=== PATIENT | male | born 1940 | race Caucasian/White ===

== ENCOUNTER 2018-12-02 22:48 | Emergency (ER) | payer MEDICARE ==
[2018-12-03 01:47] LABS: ABSOLUTE BASOPHILS # (AUTO) 0.1 10^3/uL (0.0-0.2); ABSOLUTE EOSINOPHILS # (AUTO) 0.1 10^3/uL (0.0-0.6); ABSOLUTE LYMPHOCYTES (AUTO) 1.9 10^3/uL (0.5-4.7); ABSOLUTE MONOCYTES (AUTO) 0.7 10^3/uL (0.1-1.4); ABSOLUTE NEUT (AUTO) 7.7 10^3/uL (1.7-8.2); BASOPHILS % (AUTO) 0.7 % (0-2); EOSINOPHILS % (AUTO) 0.7 % (0-6); HEMATOCRIT 42.4 % (37.9-51.0); HEMOGLOBIN 14.3 g/dL (13.5-17.0); LYMPHOCYTES % (AUTO) 18.4 % (13-45); MEAN CORPUSCULAR HEMOGLOBIN 31.6 pg (27.0-33.4); MEAN CORPUSCULAR HGB CONC 33.6 g/dL (32.0-36.0); MEAN CORPUSCULAR VOLUME 94 fl (80-97); MONOCYTES % (AUTO) 6.5 % (3-13); PLATELET COUNT 259 10^3/uL (150-450); RED BLOOD COUNT 4.51 10^6/uL (4.35-5.55); RED CELL DISTRIBUTION WIDTH 13.7 % (11.5-14.0); SEGMENTED NEUTROPHILS % (AUTO) 73.7 % (42-78); TOTAL CELLS COUNTED % (AUTO) 100 %; WHITE BLOOD COUNT 10.4 10^3/uL (4.0-10.5)
[2018-12-03 02:07] LABS: ALANINE AMINOTRANSFERASE 21 U/L (21-72); ALKALINE PHOSPHATASE 120 U/L (38-126); ANION GAP 9 (5-19); ASPARTATE AMINO TRANSFERASE 20 U/L (17-59); BILIRUBIN,DIRECT 0.2 mg/dL (0.0-0.4); BILIRUBIN,TOTAL 0.3 mg/dL (0.2-1.3); BLOOD UREA NITROGEN 26 mg/dL (7-20); CALCIUM 9.4 mg/dL (8.4-10.2); CARBON DIOXIDE 29 mmol/L (22-30); CHLORIDE 100 mmol/L (98-107); CREATINE KINASE 134 U/L (55-170); GLUCOSE 197 mg/dL (75-110); POTASSIUM 5.3 mmol/L (3.6-5.0); SODIUM 137.7 mmol/L (137-145); TOTAL PROTEIN 6.8 g/dL (6.3-8.2)
[2018-12-03 02:17] LABS: CREATINE KINASE MB 2.14 ng/mL (<4.55)
--- NOTE | 2018-12-03 02:19 | RADIOLOGY REPORT (SQ) ---
CLINICAL HISTORY: chest pain COMPARISON: None. 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 Lungs are clear without consolidation, atelectasis, mass or edema. There is no pleural effusion. There is no pneumothorax. There are no acute osseous findings. IMPRESSION: No pneumonia.
--- NOTE | 2018-12-03 02:21 | ER Document Report ---
ED Cardiac - General Chief Complaint: Chest Tightness Stated Complaint: CHEST PAIN Notes: Patient is a 77-year-old male who presents to the emerge department with a chief complaint of "feeling funny." He has an extensive cardiac history and has a history of bypass surgery in 2013. He also has a history of a myocardial infarction in 1997. He states he feels the same as he did before, therefore he came to the emergency department. Denies any true chest pain. He denies doing anything strenuous. He denies any nausea, vomiting, or diarrhea. Denies shortness of breath or difficulty breathing. He stopped taking his Lasix 1 week ago. His past medical history includes hypertension, hyperlipidemia, and diabetes. TRAVEL OUTSIDE OF THE [place] IN LAST 30 DAYS: No - Related Data Allergies/Adverse Reactions: No Known Allergies Allergy (Unverified 01/15/15 17:07) Past Medical History - Social History Smoking Status: Former Smoker Chew tobacco use (# tins/day): No Drug Abuse: None Family History: Reviewed & Not Pertinent Patient has suicidal ideation: No Patient has homicidal ideation: No - Past Medical History Cardiac Medical History: Reports: Hx Coronary Artery Disease, Hx Heart Attack - 2013, Hx Hypertension Pulmonary Medical History: Reports: Hx Asthma, Hx COPD, Hx Pneumonia Denies: Hx Bronchitis Neurological Medical History: Denies: Hx Cerebrovascular Accident, Hx Seizures Endocrine Medical History: Reports: Hx Diabetes Mellitus Type 2 Renal/ Medical History: Denies: Hx Peritoneal Dialysis Musculoskeletal Medical History: Reports Hx Arthritis Past Surgical History: Reports: Hx Cardiac Surgery - dbl bypass, Hx Orthopedic Surgery - left finger, left knee - Immunizations Hx Diphtheria, Pertussis, Tetanus Vaccination: Yes Hx Pneumococcal Vaccination: 08/29/13 Review of Systems - Review of Systems Notes: REVIEW OF SYSTEMS: CONSTITUTIONAL : Denies recent illness. Denies recent unintentional weight loss. Denies fever, chills, or sweats. EENT: Denies eye, ear, throat, or mouth pain, discharge, or symptoms. Denies nasal or sinus congestion. CARDIOVASCULAR: See HPI RESPIRATORY: Denies shortness of breath, cough, congestion, difficulty breathing, or wheezing. GASTROINTESTINAL: Denies nausea, vomiting, and diarrhea. Denies abdominal pain. Denies constipation. GENITOURINARY: Denies difficulty urinating, burning, blood in urine, urgency or frequency. MUSCULOSKELETAL: Denies neck and back pain. Denies joint pain or swelling. SKIN: Denies rash, itchiness, or lesions HEMATOLOGIC : Denies easy bruising or bleeding. LYMPHATIC: Denies swollen, painful, enlarged glands. NEUROLOGICAL: Denies no numbness or tingling denies weakness. Denies headache. Denies altered mental status. Denies alteration in speech. PSYCHIATRIC: Denies stress, anxiety, alteration in sleep patterns, or depression. All other systems reviewed and negative. Physical Exam - Vital signs Vitals: Temp Pulse Resp BP Pulse Ox 97.5 F 65 18 149/80 H 96 12/02/18 23:19 12/02/18 23:19 12/02/18 23:19 12/02/18 23:19 12/02/18 23:19 - Notes Notes: PHYSICAL EXAMINATION: GENERAL: Obese, well-nourished, no acute distress. HEAD: Normocephalic, atraumatic. EYES: PERRL, conjunctiva normal, all extraocular movements intact, sclera nonic teric ENT: Moist mucous membranes. NECK: Supple, no noticeable swelling, redness, rash. Normal range of motion. LUNGS: Equal breath sounds bilaterally and clear to auscultation. No wheezes rales or rhonchi. CARDIOVASCULAR: S1-S2, regular rate, regular rhythm. Radial pulses 2+, normal. ABDOMEN: Normoactive bowel sounds. Soft, nontender, no guarding, no rebound tenderness, and no masses palpated. Obese abdomen. EXTREMITIES: Normal strength and range of motion, no pitting or edema. No cyanosis. NEUROLOGICAL: Moves all extremities upon command. Strength 5/5 in all extremities. PSYCH: Normal mood, normal affect. SKIN: Warm, dry. No rash, lesions, ulcerations noted. Normal skin turgor. Course - Re-evaluation Re-evalutation: 12/03/18 04:40 Patient is labs are unremarkable other than his potassium being 5.3. I suspect his potassium is 5.3 because he stopped taking his Lasix. He stated that he stopped taking his Lasix because he peed a lot. I educated the patient in regards to why it is important that he stay on his Lasix. He verbalized understanding. His chest x-ray is clear. His EKG shows sinus rhythm. The read on the zoning engineer reads an anterior infarct, but he has history of a CABG and acute myocardial infarction, which is consistent with the infarcted area. There is no previous EKG for comparison. 12/03/18 05:40 Patient's repeat troponin is negative. I suspect that the reason he is having his symptoms is because he has stopped taking his Lasix for the past week. I have given him strict instructions on getting back on his Lasix. He verbalized understanding. He states that he will take his Lasix when he gets home. Verbal discharge instructions were given to the patient. They verbalized understanding. They are stable for discharge. Documentation was completed using voice recognition software, therefore there may be some unintended grammatical or punctual errors. - Vital Signs Vital signs: Temp Pulse Resp BP Pulse Ox 98.2 F 65 18 107/57 L 96 12/03/18 05:01 12/02/18 23:19 12/03/18 05:01 12/03/18 05:01 12/03/18 05:01 - Laboratory Result Diagrams: 12/03/18 01:25 12/03/18 01:25 Laboratory results interpreted by me: 12/03/18 01:25 Potassium 5.3 H BUN 26 H Glucose 197 H - EKG Interpretation by Me Additional EKG results interpreted by me: 12/03/18 Sinus rhythm. Heart rate 67. CA interval 216. QRS 102; QT 408; QTC 431. Discharge - Discharge Clinical Impression: Chest pain Qualifiers: Chest pain type: unspecified Qualified Code(s): R07.9 - Chest pain, unspecified Condition: Stable Disposition: HOME, SELF-CARE Additional Instructions: You were seen today in the emergency department for chest pain. Your chest x-ray is normal, your EKG is normal, and your labs show that your potassium has increased slightly. Please start taking your Lasix again, as this may be the cause of your chest pain symptoms. You are not having a heart attack. Please follow-up with Dr. Hubbard in the morning in regards to this emergency department visit. Referrals: SHIRLEY PFEIFFER MD [NO LOCAL MD] - Follow up as needed DEE DEE HUBBARD MD [ACTIVE STAFF] - Follow up tomorrow
[2018-12-03 02:25] LABS: TROPONIN I < 0.012 ng/mL
[2018-12-03 05:47] VITALS: BP 107/57
--- NOTE | 2018-12-03 12:41 | EKG REPORT ---
SEVERITY:- ABNORMAL ECG - SINUS RHYTHM ANTERIOR INFARCT, AGE INDETERMINATE BORDERLINE T ABNORMALITIES, INFERIOR LEADS : Confirmed by: Monique Corona MD 03-Dec-2018 12:40:48
== END 2018-12-03 05:20 | disposition home or self-care (01) ==
LOC: ER 22:48
DX: R07.89 Other chest pain (principal); I10 Essential (primary) hypertension; T50.1X6A Underdosing of loop [high-ceiling] diuretics, initial encounter; Z91.128 Patient's intentional underdosing of medication regimen for other reason; Z91.14 Patient's other noncompliance with medication regimen; E11.9 Type 2 diabetes mellitus without complications; I25.10 Atherosclerotic heart disease of native coronary artery without angina pectoris; E66.9 Obesity, unspecified; J44.9 Chronic obstructive pulmonary disease, unspecified; I25.2 Old myocardial infarction; Z95.1 Presence of aortocoronary bypass graft; Z87.891 Personal history of nicotine dependence; Z87.01 Personal history of pneumonia (recurrent)
CPT/HCPCS: 36415; 71045; 80053; 82550; 82553; 84484; 85025; 93005; 93010; 99285

== ENCOUNTER 2019-07-07 11:24 | Inpatient (IN) | payer MEDICARE ==
[2019-07-07] MEDS ORDERED: IPRATROPIUM/ALBUTEROL 0.5-2.5 MG/3 ML AMPUL NEB ONE (12:32)
[2019-07-07] MEDS ORDERED: METHYLPREDNISOLONE INJ 40 MG/1 ML SDV IV ONE (12:32)
--- NOTE | 2019-07-07 12:33 | ER Document Report ---
ED General - General Chief Complaint: Shortness Of Breath Stated Complaint: SHORTNESS OF BREATH Time Seen by Provider: 07/07/19 12:00 Notes: Patient is a 78-year-old male with COPD that presents to the emergency department for chief complaint of shortness of breath and cough. Patient states that since Wednesday has been having more shortness of breath, difficulty breathing, he had his primary physician know this, they called in a prescription for azithromycin which she has been taking without any improvement, they called to check on him, and he was not doing better so he went to the office today, had chest x-ray that was concerning for pneumonia so he was sent to the emergency department, he reports having a low-grade temperature of a T-max of 100.7 F. He denies having any chest pain associated with this, denies any nausea, vomiting or abdominal pain. He does report he has obstructive sleep apnea wears CPAP at night, and has been compliant with this as well. He also uses inhalers, but they have not been improving his symptoms. Past Medical History: COPD, CAD, obstructive sleep apnea, diabetes mellitus Past Surgical History: CABG, stents Social History: Former smoker, denies alcohol or illicit drug use. Family History: Reviewed and noncontributory for presenting illness Allergies: Reviewed, see documented allergy list. REVIEW OF SYSTEMS: Other than noted above, the 12 point review of systems was reviewed with the pat ient and were negative, all pertinent findings are included in the HPI. PHYSICAL EXAMINATION: Vital signs reviewed, nursing noted reviewed. GENERAL: Elderly, obese male, mild increased work of breathing. HEAD: Atraumatic, normocephalic. EYES: Eyes appear normal, extraocular movements intact, sclera anicteric, conjunctiva are normal. ENT: nares patent, oropharynx clear without exudates. Moist mucous membranes. NECK: Normal range of motion, supple without lymphadenopathy LUNGS: Increased work of breathing, diffuse wheezing noted throughout all lung [place], lung sounds overall diminished as well. HEART: Regular rate and rhythm without murmurs ABDOMEN: Soft, obese, nontender, normoactive bowel sounds. No rebound, guarding, or rigidity. No masses appreciated. EXTREMITIES: Nontender, good range of motion, mild bilateral lower extremity edema NEUROLOGICAL: No focal neurological deficits. Moves all extremities spontaneously Motor and sensory grossly intact on exam. PSYCH: Normal mood, normal affect. SKIN: Warm, Dry, normal turgor, no rashes or lesions noted on exposed skin TRAVEL OUTSIDE OF THE [place] IN LAST 30 DAYS: No - Related Data Allergies/Adverse Reactions: No Known Allergies Allergy (Verified 07/07/19 14:59) Past Medical History - Social History Smoking Status: Former Smoker Family History: Reviewed & Not Pertinent - Past Medical History Cardiac Medical History: Reports: Hx Coronary Artery Disease, Hx Heart Attack - 2014, Hx Hypertension Pulmonary Medical History: Reports: Hx Asthma, Hx COPD, Hx Pneumonia Denies: Hx Bronchitis Neurological Medical History: Denies: Hx Cerebrovascular Accident, Hx Seizures Endocrine Medical History: Reports: Hx Diabetes Mellitus Type 2 Renal/ Medical History: Denies: Hx Peritoneal Dialysis Musculoskeletal Medical History: Reports Hx Arthritis Past Surgical History: Reports: Hx Cardiac Surgery - dbl bypass, Hx Orthopedic Surgery - left finger, left knee - Immunizations Hx Diphtheria, Pertussis, Tetanus Vaccination: Yes Hx Pneumococcal Vaccination: 08/29/13 Physical Exam - Vital signs Vitals: Temp Pulse Resp BP Pulse Ox 98.1 F 77 26 H 169/77 H 88 L 07/07/19 11:26 07/07/19 11:26 07/07/19 11:26 07/07/19 11:26 07/07/19 11:26 Course - Re-evaluation Re-evalutation: Patient seen and examined vital signs reviewed. Laboratory data and imaging were ordered as appropriate for the patient's presenting symptoms and complaint, with consideration of any critical or life threatening conditions that may be associated with their obtained history and exam as noted above. Patient was treated with DuoNeb breathing treatments, IV Solu-Medrol, and s tarted on Rocephin and azithromycin Results were reviewed when available and demonstrated chest x-ray concerning for infiltrative pneumonia, he did have an elevated BNP, but no pulmonary edema on chest x-ray, symptoms are most consistent with pneumonia, with acute exacerbation of COPD. The patient was re-evaluated and was improved after breathing treatments Results were discussed with the patient at this point after careful consideration I feel that that patient should be admitted to the hospital. This was discussed with the patient that it is in the best interest for their care to be admitted for further evaluation and management. Patient agreed with this plan of care. A call was placed to the admitting provider Issac Henry CNP who graciously accepted the patient onto their service. *Note is created using voice recognition software and may contain spelling, syntax or grammatical errors. Laboratory 07/07/19 07/07/19 07/07/19 12:31 12:31 12:31 WBC 7.4 RBC 3.89 L Hgb 12.0 L Hct 35.6 L MCV 92 MCH 30.8 MCHC 33.7 RDW 14.3 H Plt Count 268 Seg Neutrophils % 68.7 Lymphocytes % 19.7 Monocytes % 8.2 Eosinophils % 2.8 Basophils % 0.6 Absolute Neutrophils 5.1 Absolute Lymphocytes 1.5 Absolute Monocytes 0.6 Absolute Eosinophils 0.2 Absolute Basophils 0.0 VBG pH 7.41 VBG pCO2 48.6 VBG HCO3 30.3 VBG Base Excess 4.8 Sodium 137.7 Potassium 4.8 Chloride 100 Carbon Dioxide 31 H Anion Gap 7 BUN 16 Creatinine 0.98 Est GFR ( Amer) > 60 Est GFR (Non-Af Amer) > 60 Glucose 168 H POC Glucose Calcium 9.1 Total Bilirubin 0.7 Direct Bilirubin 0.3 Neonat Total Bilirubin Not Reportable Neonat Direct Bilirubin Not Reportable Neonat Indirect Bili Not Reportable AST 26 ALT 30 Alkaline Phosphatase 94 Troponin I NT-Pro-B Natriuret Pep Total Protein 6.3 Albumin 3.3 L 07/07/19 07/07/19 12:31 13:17 WBC RBC Hgb Hct MCV MCH MCHC RDW Plt Count Seg Neutrophils % Lymphocytes % Monocytes % Eosinophils % Basophils % Absolute Neutrophils Absolute Lymphocytes Absolute Monocytes Absolute Eosinophils Absolute Basophils VBG pH VBG pCO2 VBG HCO3 VBG Base Excess Sodium Potassium Chloride Carbon Dioxide Anion Gap BUN Creatinine Est GFR ( Amer) Est GFR (Non-Af Amer) Glucose POC Glucose 162 H Calcium Total Bilirubin Direct Bilirubin Neonat Total Bilirubin Neonat Direct Bilirubin Neonat Indirect Bili AST ALT Alkaline Phosphatase Troponin I < 0.012 NT-Pro-B Natriuret Pep 2840 H Total Protein Albumin Chest X-Ray 07/07/19 11:57 IMPRESSION: Increased opacity over the right mid lung, possible airspace disease. No significant pleural effusion. - Vital Signs Vital signs: Temp Pulse Resp BP Pulse Ox 98.1 F 77 20 145/66 H 94 07/07/19 11:26 07/07/19 11:26 07/07/19 14:01 07/07/19 14:01 07/07/19 14:01 - Laboratory Result Diagrams: 07/07/19 12:31 07/07/19 12:31 Laboratory results interpreted by me: 07/07/19 07/07/19 07/07/19 12:31 12:31 12:31 RBC 3.89 L Hgb 12.0 L Hct 35.6 L RDW 14.3 H Carbon Dioxide 31 H Glucose 168 H POC Glucose NT-Pro-B Natriuret Pep 2840 H Albumin 3.3 L 07/07/19 13:17 RBC Hgb Hct RDW Carbon Dioxide Glucose POC Glucose 162 H NT-Pro-B Natriuret Pep Albumin - EKG Interpretation by Me Additional EKG results interpreted by me: EKG demonstrates sinus rhythm with first-degree AV block, with a ventricular rate of 65 bpm, normal axis, normal intervals, no ST elevation, unchanged from prior EKG from 12/02/2018. Discharge - Discharge Clinical Impression: Acute exacerbation of chronic obstructive pulmonary disease (COPD), Hypoxia Community acquired pneumonia Qualifiers: Laterality: unspecified laterality Qualified Code(s): J18.9 - Pneumonia, unspecified organism Condition: Stable Disposition: ADMITTED INPATIENT Admitting Provider: Trev (Hospitalist) - Issac Henry MICRO COMPUTER DATA PROCESSOR Unit Admitted: Telemetry
[2019-07-07 12:53] LABS: VENOUS BLOOD BASE EXCESS 4.8 mmol/L; VENOUS BLOOD HCO3 30.3 mmol/L (20-32); VENOUS BLOOD PCO2 48.6 mmHg (35-63); VENOUS BLOOD PH 7.41 (7.30-7.42)
[2019-07-07 12:57] LABS: ABSOLUTE EOSINOPHILS # (AUTO) 0.2 10^3/uL (0.0-0.6); ABSOLUTE LYMPHOCYTES (AUTO) 1.5 10^3/uL (0.5-4.7); ABSOLUTE MONOCYTES (AUTO) 0.6 10^3/uL (0.1-1.4); ABSOLUTE NEUT (AUTO) 5.1 10^3/uL (1.7-8.2); BASOPHILS % (AUTO) 0.6 % (0-2); EOSINOPHILS % (AUTO) 2.8 % (0-6); HEMATOCRIT 35.6 % (37.9-51.0); LYMPHOCYTES % (AUTO) 19.7 % (13-45); MEAN CORPUSCULAR HEMOGLOBIN 30.8 pg (27.0-33.4); MEAN CORPUSCULAR HGB CONC 33.7 g/dL (32.0-36.0); MEAN CORPUSCULAR VOLUME 92 fl (80-97); MONOCYTES % (AUTO) 8.2 % (3-13); PLATELET COUNT 268 10^3/uL (150-450); RED BLOOD COUNT 3.89 10^6/uL (4.35-5.55); RED CELL DISTRIBUTION WIDTH 14.3 % (11.5-14.0); SEGMENTED NEUTROPHILS % (AUTO) 68.7 % (42-78); TOTAL CELLS COUNTED % (AUTO) 100 %; WHITE BLOOD COUNT 7.4 10^3/uL (4.0-10.5)
[2019-07-07 13:16] LABS: ANION GAP 7 (5-19)
--- NOTE | 2019-07-07 13:19 | EKG REPORT ---
SEVERITY:- ABNORMAL ECG - SINUS RHYTHM FIRST DEGREE AV BLOCK ANTERIOR INFARCT, OLD POSSIBLE OLD INFERIOR MT. : Confirmed by: Mckinley Santos MD 07-Jul-2019 13:18:52
[2019-07-07 13:28] LABS: NT PRO BNP 2840 pg/mL (<450)
[2019-07-07 13:29] LABS: TROPONIN I < 0.012 ng/mL
[2019-07-07 13:30] LABS: ALBUMIN 3.3 g/dL (3.5-5.0); ALKALINE PHOSPHATASE 94 U/L (38-126); ASPARTATE AMINO TRANSFERASE 26 U/L (17-59); BILIRUBIN,DIRECT 0.3 mg/dL (0.0-0.4); BILIRUBIN,TOTAL 0.7 mg/dL (0.2-1.3); BLOOD UREA NITROGEN 16 mg/dL (7-20); CALCIUM 9.1 mg/dL (8.4-10.2); CARBON DIOXIDE 31 mmol/L (22-30); CHLORIDE 100 mmol/L (98-107); GLUCOSE 168 mg/dL (75-110); POTASSIUM 4.8 mmol/L (3.6-5.0); TOTAL PROTEIN 6.3 g/dL (6.3-8.2)
[2019-07-07] MEDS ORDERED: CEFTRIAXONE 1 GM/D5W RTU 1 GM/50 ML RTUPB IV ONE (14:10)
--- NOTE | 2019-07-07 14:10 | RADIOLOGY REPORT (SQ) ---
EXAM DESCRIPTION: CHEST SINGLE VIEW COMPLETED DATE/TIME: 07/07/2019 1:59 pm REASON FOR STUDY: SOB COMPARISON: 12/03/2018 TECHNIQUE: Single frontal radiographic view of the chest acquired. NUMBER OF VIEWS: One view. LIMITATIONS: None. FINDINGS: LUNGS AND PLEURA: No pneumothorax. Increased opacity over the right mid lung, possible ai rspace disease. No significant pleural effusion. Similar chronic interstitial changes. MEDIASTINUM AND HILAR STRUCTURES: Stable. HEART AND VASCULAR STRUCTURES: Stable. BONES: No acute findings. HARDWARE: CABG. OTHER: No other significant finding. IMPRESSION: Increased opacity over the right mid lung, possible airspace disease. No significant pl eural effusion. TECHNICAL DOCUMENTATION: JOB ID: [id number] 2010 [employer]- All Rights Reserved Reading location - IP/workstation name: [email or web address]
[2019-07-07] MEDS ORDERED: AZITHROMYCIN INJ 500 MG VIAL IV ONE (14:11)
[2019-07-07] MEDS ORDERED: CEFTRIAXONE SODIUM 1,000 MG in DEXTROSE 5%-WATER 50 ML IV ONE (15:00)
[2019-07-07] MEDS ORDERED: ONDANSETRON HCL INJ/PF 4 MG/2 ML SDV IV PRN (15:23)
[2019-07-07] MEDS ORDERED: OXYCODONE-ACETAMINOPHEN 5-325 MG TABLET PO PRN (15:23)
[2019-07-07] MEDS ORDERED: TEMAZEPAM 15 MG CAPSULE PO PRN (15:23)
[2019-07-07] MEDS ORDERED: ALBUTEROL SULFATE 0.083% NEB 2.5 MG/3 ML AMPUL NEB PRN ×2 (15:33→17:00)
[2019-07-07] MEDS ORDERED: DEXTROSE 50%-WATER 25 GM/50 ML DISP.SYRIN IV PRN ×2 (15:34)
[2019-07-07] MEDS ORDERED: DEXTROSE 40% GEL 15 GM TUBE PO PRN ×2 (15:34)
[2019-07-07] MEDS ORDERED: GLUCAGON,HUMAN RECOMB 1 MG INJ IM PRN (15:34)
--- NOTE | 2019-07-07 15:37 | Progress Note Acknowledgement ---
Progress Note Acknowledgement Progess Note Acknowledgement: I, the undersigned member of the medical staff with appropriate privileges and with supervisory authority over [Issac Henry], a dependent practice allied health professional, acknowledge that I have reviewed the progress notes entered on this patient, and in my professional judgment believe that the assessment made and/or any care evidenced was appropriate
[2019-07-07] MEDS ORDERED: IPRATROPIUM/ALBUTEROL 0.5-2.5 MG/3 ML AMPUL NEB SCH (15:45)
[2019-07-07] MEDS: AZITHROMYCIN 250 MG TABLET PO SCH (15:49)
--- NOTE | 2019-07-07 15:56 | PDOC H&P ---
History of Present Illness Admission Date/PCP: July 07, 2019 SHIRLEY PFEIFFER MD Patient complains of: Shortness of breath History of Present Illness: COLLEEN BETTS JR is a 78 year old male with a several day history of increased shortness of breath. Patient had called his primary care practitioner in week and had antibiotics called in unfortunately they have not shown any improvement. Patient reported ER with increased shortness of breath and found to have an acute exacerbation of chronic CHF as well as as acute exacerbation of chronic COPD and a lobular right middle lobe pneumonia. Patient also has blunting of the bilateral lower lobes suggestive of pneumonia as well. Patient states no other treatment prior to arrival all active is been aggravating factor. Patient says he is unable to perform most of his usual activities at this time secondary shortness of breath. Does have a cough that is nonproductive at this time Past Medical History Cardiac Medical History: Reports: Coronary Artery Disease, Myocardial Infarction - 2013, Hypertension Pulmonary Medical History: Reports: Asthma, Chronic Obstructive Pulmonary Disease (COPD), Pneumonia Denies: Bronchitis Neurological Medical History: Denies: Seizures Endocrine Medical History: Reports: Diabetes Mellitus Type 2 Musculoskeltal Medical History: Reports: Arthritis Hematology: Denies: Anemia Past Surgical History Past Surgical History: Reports: Orthopedic Surgery - left finger, left knee Social History Information Source: Patient Lives with: Family Smoking Status: Former Smoker Frequency of Alcohol Use: None Hx Recreational Drug Use: No Drugs: None Hx Prescription Drug Abuse: No - Advance Directive Resuscitation Status: Full Code Family History Family History: CAD, Hypertension, Other - Leukemia Parental Family History Reviewed: Yes Children Family History Reviewed: Yes Sibling(s) Family History Reviewed.: Yes Medication/Allergy Home Medications: Albuterol Sulfate [Proair HFA Inhalation Aerosol 8.5 gm MDI] 2 puff IH Q4HP PRN 07/07/19 Aspirin [Ecotrin 81 mg EC Tablet] 81 mg PO DAILY 07/07/19 Atorvastatin Calcium [Lipitor 80 mg Tablet] 80 mg PO QHS 07/07/19 Azithromycin [Zithromax 250 mg Tablet] 250 mg PO DAILY 07/07/19 Dutasteride [Avodart Lf 0.5 mg Capsule] 0.5 mg PO DAILY 07/07/19 Fluticasone/Umeclidin/Vilanter [Trelegy 100-62.5-25 Mcg Ellipta 14 Dose/Dpi] 1 puff IH DAILY 07/07/19 Insulin Glargine,Hum.rec.anlog [Lantus Insulin 100 Unit/1 ml 10 ml] 20 unit SQ QHS 07/07/19 Insulin Regular, Human [Novolin R] 10 units SQ Q12 07/07/19 Metoprolol Tartrate [Lopressor 25 mg Tablet] 12.5 mg PO Q12 07/07/19 Tamsulosin HCl [Flomax 0.4 mg Cap.sr] 0.4 mg PO DAILY 07/07/19 Allergies/Adverse Reactions: No Known Allergies Allergy (Verified 07/07/19 14:59) Review of Systems Constitutional: ABSENT: chills, fever(s), headache(s), weight gain, weight loss Eyes: ABSENT: visual disturbances Ears: ABSENT: hearing changes Cardiovascular: ABSENT: chest pain, dyspnea on exertion, edema, orthropnea, palpitations Respiratory: PRESENT: cough, dyspnea. ABSENT: hemoptysis Gastrointestinal: ABSENT: abdominal pain, constipation, diarrhea, hematemesis, hematochezia, nausea, vomiting Genitourinary: ABSENT: dysuria, hematuria Musculoskeletal: ABSENT: joint swelling Integumentary: ABSENT: rash, wounds Neurological: ABSENT: abnormal gait, abnormal speech, confusion, dizziness, focal weakness, syncope Psychiatric: ABSENT: anxiety, depression, homidical ideation, suicidal ideation Endocrine: ABSENT: cold intolerance, heat intolerance, polydipsia, polyuria Hematologic/Lymphatic: ABSENT: easy bleeding, easy bruising Physical Exam Vital Signs: Temp Pulse Resp BP Pulse Ox 98.1 F 77 20 145/66 H 94 07/07/19 11:26 07/07/19 11:26 07/07/19 14:01 07/07/19 14:01 07/07/19 14:01 Intake & Output 07/06/19 07/07/19 07/08/19 06:59 06:59 06:59 Weight 128.5 kg General appearance: PRESENT: no acute distress, well-developed, well-nourished Head exam: PRESENT: atraumatic, normocephalic Eye exam: PRESENT: conjunctiva pink, EOMI, PERRLA. ABSENT: scleral icterus Ear exam: PRESENT: normal external ear exam Mouth exam: PRESENT: moist, tongue midline Neck exam: ABSENT: carotid bruit, JVD, lymphadenopathy, thyromegaly Respiratory exam: PRESENT: decreased breath sounds, rales, symmetrical, unlabored, wheezes Cardiovascular exam: PRESENT: RRR. ABSENT: diastolic murmur, rubs, systolic murmur Pulses: PRESENT: normal dorsalis pedis pul Vascular exam: PRESENT: normal capillary refill GI/Abdominal exam: PRESENT: normal bowel sounds, soft. ABSENT: distended, guarding, mass, organolmegaly, rebound, tenderness Rectal exam: PRESENT: deferred Extremities exam: PRESENT: full ROM. ABSENT: calf tenderness, clubbing, pedal edema Neurological exam: PRESENT: alert, awake, oriented to person, oriented to place, oriented to time, oriented to situation, CN II-XII grossly intact. ABSENT: motor sensory deficit Psychiatric exam: PRESENT: appropriate affect, normal mood. ABSENT: homicidal ideation, suicidal ideation Skin exam: PRESENT: dry, intact, warm. ABSENT: cyanosis, rash Results Laboratory Results: 07/07/19 12:31 07/07/19 12:31 07/07/19 07/07/19 07/07/19 12:31 12:31 12:31 WBC 7.4 RBC 3.89 L Hgb 12.0 L Hct 35.6 L MCV 92 MCH 30.8 MCHC 33.7 RDW 14.3 H Plt Count 268 Seg Neutrophils % 68.7 Lymphocytes % 19.7 Monocytes % 8.2 Eosinophils % 2.8 Basophils % 0.6 Absolute Neutrophils 5.1 Absolute Lymphocytes 1.5 Absolute Monocytes 0.6 Absolute Eosinophils 0.2 Absolute Basophils 0.0 VBG pH 7.41 VBG pCO2 48.6 VBG HCO3 30.3 VBG Base Excess 4.8 Sodium 137.7 Potassium 4.8 Chloride 100 Carbon Dioxide 31 H Anion Gap 7 BUN 16 Creatinine 0.98 Est GFR ( Amer) > 60 Est GFR (Non-Af Amer) > 60 Glucose 168 H Calcium 9.1 Total Bilirubin 0.7 AST 26 Alkaline Phosphatase 94 Total Protein 6.3 Albumin 3.3 L 07/07/19 12:31 Troponin I < 0.012 NT-Pro-B Natriuret Pep 2840 H Impressions: Chest X-Ray 07/07/19 11:57 IMPRESSION: Increased opacity over the right mid lung, possible airspace disease. No significant pleural effusion. Assessment and Plan - Diagnosis (1) Congestive heart failure Qualifiers: Heart failure type: unspecified Heart failure chronicity: unspecified Qualified Code(s): I50.9 - Heart failure, unspecified Is this a current diagnosis for this admission?: Yes Plan: July 07, 2019-I discussed suspect this is acute on chronic although I have no previous echocardiogram to compare to. I will obtain an echocardiogram. Place patient on Lasix 40 g IV 3 times daily until we have bumped his creatinine. Await echocardiogram and may change Medicare based on if this systolic or james stolic in nature. (2) Acute exacerbation of chronic obstructive pulmonary disease (COPD) Is this a current diagnosis for this admission?: Yes Plan: July 07, 2019-bronchodilators, Solu-Medrol 40mg 3 times daily, and patient on Rocephin and azithromycin for known pneumonia. We will continue to follow make change plan of care as appropriate. Place patient on BiPAP as needed at night and for shortness of breath. (3) Community acquired pneumonia Qualifiers: Laterality: unspecified laterality Qualified Code(s): J18.9 - Pneumonia, unspecified organism Is this a current diagnosis for this admission?: Yes Plan: July 07, 2019-lobulated right middle lobe pneumonia, bilateral basilar pneumonia as well. Place patient Rocephin 1 g IV daily and azithromycin 500 mg p.o. daily. Patient be treated for acute exacerbation chronic COPD as well. Will await cultures make change plan of care based on findings. (4) Diabetes mellitus type 2 in obese Is this a current diagnosis for this admission?: Yes Plan: July 07, 2018-cardiac diet with sliding scale insulin and Lantus 15 units at bedtime adjust per patient needs. (5) Hypertension Is this a current diagnosis for this admission?: Yes Plan: July 07, 2019-continue all home meds. (6) Dyslipidemia Is this a current diagnosis for this admission?: Yes Plan: Continue anti-dyslipidemic's (7) BPH (benign prostatic hyperplasia) Is this a current diagnosis for this admission?: Yes Plan: July 07, 2019-continue Flomax - Time Time Spent with patient: 35 or more minutes - Inpatient Certification Based on my medical assessment, after consideration of the patient's comorbidities, presenting symptoms, or acuity I expect that the services needed warrant INPATIENT care.: Yes I certify that my determination is in accordance with my understanding of Medicare's requirements for reasonable and necessary INPATIENT services [42 CFR 412.3e].: Yes Medical Necessity: Other - IV antibiotics
--- NOTE | 2019-07-07 15:58 | ADVANCED CARE ---
- Diagnosis (1) Congestive heart failure Diagnosis Current: Yes (2) Acute exacerbation of chronic obstructive pulmonary disease (COPD) Diagnosis Current: Yes (3) Community acquired pneumonia Diagnosis Current: Yes (4) Diabetes mellitus type 2 in obese Diagnosis Current: Yes (5) Hypertension Diagnosis Current: Yes (6) Dyslipidemia Diagnosis Current: Yes (7) BPH (benign prostatic hyperplasia) Diagnosis Current: Yes Attendance: Myself and patient Resuscitation Status: Full Code Discussion: Discussed plan of care with patient. Place patient medical surgical floor treat his congestive heart failure with Lasix get an echocardiogram, COPD exacerbation with bronchodilators, steroids and antibiotics, and pneumonia with antibiotics. We will continue home medications. Patient in agreement with plan of care. Care Planning Goals: 1-Rocephin and azithromycin for pneumonia 2-steroids, bronchodilators, and antibiotics for COPD exacerbation 3-congestive heart failure-Lasix 40 g IV 3 times daily and echocardiogram make adjustment based on future findings. Time Spent: 20 minutes
[2019-07-07] MEDS ORDERED: METHYLPREDNISOLONE INJ 40 MG/1 ML SDV IV SCH (18:00)
[2019-07-07] MEDS: INSULIN REG, HUMAN 100 UNIT/ML 3 ML VIAL (PYX) SUBCUT SCH ×2 (18:18→21:28)
[2019-07-07] MEDS: FUROSEMIDE INJ/PF 40 MG/4 ML SDV IV SCH (18:21)
[2019-07-07] MEDS: IPRATROPIUM/ALBUTEROL 0.5-2.5 MG/3 ML AMPUL NEB SCH (20:20)
[2019-07-07 21:09] LABS: APPEARANCE,URINE CLEAR; BILIRUBIN,URINE NEGATIVE (NEGATIVE); COLOR,URINE YELLOW; GLUCOSE, URINE 50 mg/dL (NEGATIVE); KETONES,URINE NEGATIVE (NEGATIVE); LEUKOCYTE ESTERASE,URINE NEGATIVE (NEGATIVE); NITRITE,URINE NEGATIVE (NEGATIVE); PROTEIN,URINE NEGATIVE (NEGATIVE); URINE SPECIFIC GRAVITY 1.008; UROBILINOGEN,URINE NEGATIVE mg/dL (<2.0)
[2019-07-07] MEDS: ATORVASTATIN CALCIUM 80 MG TABLET PO SCH (21:24)
[2019-07-07] MEDS: METOPROLOL TARTRATE 25 MG TABLET PO SCH (21:24)
[2019-07-07] MEDS: HEPARIN SOD (PORCINE) 5,000 UNIT/ML 1 ML VIAL SUBCUT SCH (21:29)
[2019-07-07] MEDS ORDERED: INSULIN GLARGINE,HUM.REC.ANLOG 1,000 UNIT/10 ML VIAL SUBCUT SCH (22:00)
[2019-07-08] MEDS: IPRATROPIUM/ALBUTEROL 0.5-2.5 MG/3 ML AMPUL NEB SCH ×6 (00:37→20:03)
[2019-07-08 05:49] LABS: ABSOLUTE LYMPHOCYTES (AUTO) 0.9 10^3/uL (0.5-4.7); ABSOLUTE MONOCYTES (AUTO) 0.4 10^3/uL (0.1-1.4); ABSOLUTE NEUT (AUTO) 5.6 10^3/uL (1.7-8.2); BASOPHILS % (AUTO) 0.4 % (0-2); HEMATOCRIT 34.7 % (37.9-51.0); HEMOGLOBIN 11.6 g/dL (13.5-17.0); MEAN CORPUSCULAR HEMOGLOBIN 30.4 pg (27.0-33.4); MEAN CORPUSCULAR HGB CONC 33.4 g/dL (32.0-36.0); MEAN CORPUSCULAR VOLUME 91 fl (80-97); MONOCYTES % (AUTO) 6.4 % (3-13); PLATELET COUNT 290 10^3/uL (150-450); RED BLOOD COUNT 3.81 10^6/uL (4.35-5.55); RED CELL DISTRIBUTION WIDTH 14.3 % (11.5-14.0); SEGMENTED NEUTROPHILS % (AUTO) 80.2 % (42-78); TOTAL CELLS COUNTED % (AUTO) 100 %
[2019-07-08 06:07] LABS: ANION GAP 15 (5-19); BLOOD UREA NITROGEN 26 mg/dL (7-20); CALCIUM 8.2 mg/dL (8.4-10.2); CARBON DIOXIDE 23 mmol/L (22-30); CHLORIDE 96 mmol/L (98-107); GLUCOSE 304 mg/dL (75-110); POTASSIUM 4.6 mmol/L (3.6-5.0)
[2019-07-08] MEDS: HEPARIN SOD (PORCINE) 5,000 UNIT/ML 1 ML VIAL SUBCUT SCH ×3 (06:53→22:12)
[2019-07-08] MEDS: INSULIN REG, HUMAN 100 UNIT/ML 3 ML VIAL (PYX) SUBCUT SCH ×4 (07:37→22:12)
--- NOTE | 2019-07-08 09:14 | PDOC PROGRESS REPORT ---
Subjective Progress Note for:: 07/08/19 Subjective:: None this a.m. Reason For Visit: COMMUNITY ACQUIRED PNEUMONIA, ACUTE CHRONIC HEART Physical Exam Vital Signs: Temp Pulse Resp BP Pulse Ox 97.3 F 71 20 142/61 H 98 07/08/19 07:27 07/08/19 07:27 07/08/19 07:27 07/08/19 07:27 07/08/19 07:27 Intake & Output 07/07/19 07/08/19 07/09/19 06:59 06:59 06:59 Intake Total 488 Output Total 1200 Balance -712 Weight 118.8 kg General appearance: PRESENT: no acute distress, well-developed, well-nourished Head exam: PRESENT: atraumatic, normocephalic Eye exam: PRESENT: conjunctiva pink, EOMI, PERRLA. ABSENT: scleral icterus Ear exam: PRESENT: normal external ear exam Mouth exam: PRESENT: moist, tongue midline Neck exam: ABSENT: carotid bruit, JVD, lymphadenopathy, thyromegaly Respiratory exam: PRESENT: clear to auscultation sheila. ABSENT: rales, rhonchi, wheezes Cardiovascular exam: PRESENT: RRR. ABSENT: diastolic murmur, rubs, systolic murmur Pulses: PRESENT: normal dorsalis pedis pul Vascular exam: PRESENT: normal capillary refill GI/Abdominal exam: PRESENT: normal bowel sounds, soft. ABSENT: distended, guarding, mass, organolmegaly, rebound, tenderness Rectal exam: PRESENT: deferred Extremities exam: PRESENT: full ROM. ABSENT: calf tenderness, clubbing, pedal edema Neurological exam: PRESENT: alert, awake, oriented to person, oriented to place, oriented to time, oriented to situation, CN II-XII grossly intact. ABSENT: motor sensory deficit Psychiatric exam: PRESENT: appropriate affect, normal mood. ABSENT: homicidal ideation, suicidal ideation Skin exam: PRESENT: dry, intact, warm. ABSENT: cyanosis, rash Results Laboratory Results: 07/08/19 04:50 07/08/19 04:50 07/07/19 07/07/19 07/07/19 12:31 12:31 12:31 WBC 7.4 RBC 3.89 L Hgb 12.0 L Hct 35.6 L MCV 92 MCH 30.8 MCHC 33.7 RDW 14.3 H Plt Count 268 Seg Neutrophils % 68.7 Lymphocytes % 19.7 Monocytes % 8.2 Eosinophils % 2.8 Basophils % 0.6 Absolute Neutrophils 5.1 Absolute Lymphocytes 1.5 Absolute Monocytes 0.6 Absolute Eosinophils 0.2 Absolute Basophils 0.0 VBG pH 7.41 VBG pCO2 48.6 VBG HCO3 30.3 VBG Base Excess 4.8 Sodium 137.7 Potassium 4.8 Chloride 100 Carbon Dioxide 31 H Anion Gap 7 BUN 16 Creatinine 0.98 Est GFR ( Amer) > 60 Est GFR (Non-Af Amer) > 60 Glucose 168 H Calcium 9.1 Total Bilirubin 0.7 AST 26 Alkaline Phosphatase 94 Total Protein 6.3 Albumin 3.3 L Urine Color Urine Appearance Urine pH Ur Specific Thrall Urine Protein Urine Glucose (UA) Urine Ketones Urine Blood Urine Nitrite Ur Leukocyte Esterase Urine WBC (Auto) Urine RBC (Auto) 07/07/19 07/08/19 07/08/19 20:13 04:50 04:50 WBC 7.0 RBC 3.81 L Hgb 11.6 L Hct 34.7 L MCV 91 MCH 30.4 MCHC 33.4 RDW 14.3 H Plt Count 290 Seg Neutrophils % 80.2 H Lymphocytes % 13.0 Monocytes % 6.4 Eosinophils % 0.0 Basophils % 0.4 Absolute Neutrophils 5.6 Absolute Lymphocytes 0.9 Absolute Monocytes 0.4 Absolute Eosinophils 0.0 Absolute Basophils 0.0 VBG pH VBG pCO2 VBG HCO3 VBG Base Excess Sodium 134.1 L Potassium 4.6 Chloride 96 L Carbon Dioxide 23 Anion Gap 15 BUN 26 H Creatinine 0.94 Est GFR ( Amer) > 60 Est GFR (Non-Af Amer) > 60 Glucose 304 H Calcium 8.2 L Total Bilirubin AST Alkaline Phosphatase Total Protein Albumin Urine Color YELLOW Urine Appearance CLEAR Urine pH 5.0 Ur Specific Thrall 1.008 Urine Protein NEGATIVE Urine Glucose (UA) 50 H Urine Ketones NEGATIVE Urine Blood MODERATE H Urine Nitrite NEGATIVE Ur Leukocyte Esterase NEGATIVE Urine WBC (Auto) 1 Urine RBC (Auto) 5 07/07/19 12:31 Troponin I < 0.012 NT-Pro-B Natriuret Pep 2840 H Impressions: Chest X-Ray 07/07/19 11:57 IMPRESSION: Increased opacity over the right mid lung, possible airspace disease. No significant pleural effusion. Assessment and Plan - Diagnosis (1) Congestive heart failure Qualifiers: Heart failure type: unspecified Heart failure chronicity: unspecified Adal lified Code(s): I50.9 - Heart failure, unspecified Is this a current diagnosis for this admission?: Yes Plan: July 07, 2019-I discussed suspect this is acute on chronic although I have no previous echocardiogram to compare to. I will obtain an echocardiogram. Place patient on Lasix 40 g IV 3 times daily until we have bumped his creatinine. Await echocardiogram and may change Medicare based on if this systolic or diastolic in nature. July 08, 2019-await echocardiogram. Continue Lasix 40 g IV 3 times daily at this time as patient has not shown a bump in his creatinine. Reevaluate after echocardiogram. (2) Acute exacerbation of chronic obstructive pulmonary disease (COPD) Is this a current diagnosis for this admission?: Yes Plan: July 07, 2019-bronchodilators, Solu-Medrol 40mg 3 times daily, and patient on Rocephin and azithromycin for known pneumonia. We will continue to follow make change plan of care as appropriate. Place patient on BiPAP as needed at night and for shortness of breath. July 08, 2019-improved continue bronchodilators, DC Solu-Medrol placed on prednisone. 60 mg p.o. daily (3) Community acquired pneumonia Qualifiers: Laterality: unspecified laterality Qualified Code(s): J18.9 - Pneumonia, unspecified organism Is this a current diagnosis for this admission?: Yes Plan: July 07, 2019-lobulated right middle lobe pneumonia, bilateral basilar pneumonia as well. Place patient Rocephin 1 g IV daily and azithromycin 500 mg p.o. daily. Patient be treated for acute exacerbation chronic COPD as well. Will await cultures make change plan of care based on findings. July 08 2019-continue Rocephin and azithromycin at this time. Await cultures (4) Diabetes mellitus type 2 in obese Is this a current diagnosis for this admission?: Yes Plan: July 07, 2019-cardiac diet with sliding scale insulin and Lantus 15 units at bedtime adjust per patient needs. July 08, 2019-exacerbated by IV Solu-Medrol. Increase Lantus to 25 units at bedtime continue sliding scale (5) Hypertension Is this a current diagnosis for this admission?: Yes Plan: July 07, 2019-continue all home meds. July 08, 2019-stable (6) Dyslipidemia Is this a current diagnosis for this admission?: Yes Plan: Continue anti-dyslipidemic's July 08, 2019-stable (7) BPH (benign prostatic hyperplasia) Is this a current diagnosis for this admission?: Yes Plan: July 07, 2019-continue Flomax July 08, 2019-continue Flomax - Time Time Spent with patient: 15-24 minutes - Inpatient Certification Based on my medical assessment, after consideration of the patient's comor bidities, presenting symptoms, or acuity I expect that the services needed warrant INPATIENT care.: Yes I certify that my determination is in accordance with my understanding of Medicare's requirements for reasonable and necessary INPATIENT services [42 CFR 412.3e].: Yes Medical Necessity: Other
[2019-07-08] MEDS ORDERED: CEFTRIAXONE 1 GM/D5W RTU 1 GM/50 ML RTUPB IV SCH (10:00)
[2019-07-08] MEDS: ASPIRIN 81 MG TABLET, ENT COATED PO SCH (10:54)
[2019-07-08] MEDS: AZITHROMYCIN 250 MG TABLET PO SCH (10:55)
[2019-07-08] MEDS: METOPROLOL TARTRATE 25 MG TABLET PO SCH ×2 (10:55→22:05)
[2019-07-08] MEDS: FUROSEMIDE INJ/PF 40 MG/4 ML SDV IV SCH ×3 (10:56→18:19)
[2019-07-08] MEDS: PREDNISONE 20 MG TABLET PO SCH (10:56)
[2019-07-08] MEDS: TAMSULOSIN HCL 0.4 MG CAP.SR.24H PO SCH (10:56)
[2019-07-08] MEDS: CEFTRIAXONE SODIUM 1,000 MG in DEXTROSE 5%-WATER 50 ML IV SCH (10:57)
[2019-07-08] MEDS: FLUTICASONE/UMECLIDIN/VILANTER 100-62.5-25 MCG/DOSE IH SCH (12:19)
--- NOTE | 2019-07-08 14:27 | XCELERA REPORT ---
[address] [address] Transthoracic Echocardiogram Report Name: ALPESH FRIAS COLLEEN JR Demetri Age: 78 yrs Gender: Male : 1940 Patient Status: Inpatient Patient Location: [address] [place], [place] [address] Study Date: 07/07/2019 08:23 PM Height: 69 in Weight: 283 lb BSA: 2.4 m2 Procedure: A two-dimensional transthoracic echocardiogram with color flow and Doppler was performed. Study Quality: Poor. Poor endoardial visualisation, and poor doppler interogation,. Reason For Study: CHF History: CHF. Ordering Physician: ASHANTI FULLER Performed By: Lulu Calderon Interpretation Summary Poor endoardial visualisation, and poor doppler interogation, CHF The left ventricle is grossly normal size. Probably no LVH.Probably normal wall motion with probably normal LVEF of 55% to 60%. Right atrium not well visualized secondary to technical limitations The left atrium is mildly dilated. Cannot assess ASD,VSd or PFO. There is no evidence of mitral valve prolapse. There is no mitral valve stenosis. There is no mitral regurgitation noted. There is no aortic valve stenosis No aortic regurgitation is present. There is no tricuspid stenosis. No tricuspid regurgitation. Unable to calculate RVSP due to lack of TR jet. There is no pulmonic valvular stenosis. There is a trace amount of pulmonic regurgitation There is no pericardial effusion. MMode/2D Measurements & Calculations RVDd: 2.8 cm LVIDd: 5.7 cm FS: 27.1 % Ao root diam: 3.1 cm IVSd: 1.0 cm LVIDs: 4.2 cm EDV(Teich): 160.8 ml Ao root area: 7.7 cm2 LVPWd: 1.2 cm ESV(Teich): 77.1 ml LA dimension: 4.4 cm EF(Teich): 52.1 % Doppler Measurements & Calculations MV E max karsten: MV P1/2t max karsten: Ao V2 max: LV V1 max P.7 cm/sec 112.5 cm/sec 157.5 cm/sec 7.2 mmHg MV A max karsten: MV P1/2t: 42.7 msec Ao max PG: LV V1 max: 129.3 cm/sec MVA(P1/2t): 5.2 cm2 9.9 mmHg 133.8 cm/sec MV E/A: 0.79 MV dec slope: 772.4 cm/sec2 MV dec time: 0.13 sec TV V2 max: PA V2 max: PI end-d karsten: MV P1/2t-pr_phl: 118.1 cm/sec 145.3 cm/sec 149.3 cm/sec 42.7 msec TV max PG: PA max P.4 mmHg 5.6 mmHg Left Ventricle The left ventricle is grossly normal size. Probably no LVH.Probably normal wall motion with probably normal LVEF of 55% to 60%. Doppler measurements suggest impaired left ventricular relaxation, which is associated with grade I/IV or mild diastolic dysfunction. Right Ventricle The right ventricle is not well visualized secondary to technical limitations. Atria Right atrium not well visualized secondary to technical limitations. The left atrium is mildly dilated. Cannot assess ASD,VSd or PFO. Mitral Valve There is no evidence of mitral valve prolapse. There is no mitral valve stenosis. There is no mitral regurgitation noted. Aortic Valve There is no aortic valve stenosis. No aortic regurgitation is present. Tricuspid Valve There is no tricuspid stenosis. No tricuspid regurgitation. Unable to calculate RVSP due to lack of TR jet. Pulmonic Valve There is no pulmonic valvular stenosis. There is a trace amount of pulmonic regurgitation. Great Vessels The aortic root is not well visualized. The inferior vena cava was not well visualized. Effusions There is no pericardial effusion. : ASHANTI FULLER > Monique Corona
[2019-07-08] MEDS ORDERED: INSULIN GLARGINE,HUM.REC.ANLOG 1,000 UNIT/10 ML VIAL SUBCUT SCH (22:00)
[2019-07-08] MEDS: ATORVASTATIN CALCIUM 80 MG TABLET PO SCH (22:05)
[2019-07-09] MEDS: IPRATROPIUM/ALBUTEROL 0.5-2.5 MG/3 ML AMPUL NEB SCH ×4 (00:05→12:05)
[2019-07-09 04:38] LABS: HEMOGLOBIN 10.9 g/dL (13.5-17.0); MEAN CORPUSCULAR HEMOGLOBIN 30.1 pg (27.0-33.4); MEAN CORPUSCULAR HGB CONC 33.1 g/dL (32.0-36.0); MEAN CORPUSCULAR VOLUME 91 fl (80-97); PLATELET COUNT 315 10^3/uL (150-450); RED BLOOD COUNT 3.63 10^6/uL (4.35-5.55); RED CELL DISTRIBUTION WIDTH 14.3 % (11.5-14.0); WHITE BLOOD COUNT 9.5 10^3/uL (4.0-10.5)
[2019-07-09 04:57] LABS: ANION GAP 11 (5-19); BLOOD UREA NITROGEN 36 mg/dL (7-20); CARBON DIOXIDE 29 mmol/L (22-30); CHLORIDE 96 mmol/L (98-107); GLUCOSE 281 mg/dL (75-110); POTASSIUM 4.7 mmol/L (3.6-5.0)
[2019-07-09] MEDS: HEPARIN SOD (PORCINE) 5,000 UNIT/ML 1 ML VIAL SUBCUT SCH (05:42)
[2019-07-09] MEDS: INSULIN REG, HUMAN 100 UNIT/ML 3 ML VIAL (PYX) SUBCUT SCH ×2 (08:19→12:03)
--- NOTE | 2019-07-09 08:46 | PDOC DISCHARGE SUMMARY ---
General - Admit/Disc Date/PCP Admission Date/Primary Care Provider: 07/07/19 15:37 SHIRLEY PFEIFFER MD Discharge Date: 07/09/19 - Discharge Diagnosis (1) Congestive heart failure Is this a current diagnosis for this admission?: Yes (2) Acute exacerbation of chronic obstructive pulmonary disease (COPD) Is this a current diagnosis for this admission?: Yes (3) Community acquired pneumonia Is this a current diagnosis for this admission?: Yes (4) Diabetes mellitus type 2 in obese Is this a current diagnosis for this admission?: Yes (5) Hypertension Is this a current diagnosis for this admission?: Yes (6) Dyslipidemia Is this a current diagnosis for this admission?: Yes (7) BPH (benign prostatic hyperplasia) Is this a current diagnosis for this admission?: Yes - Additional Information Resuscitation Status: Full Code Discharge Diet: As Tolerated Discharge Activity: Activity As Tolerated Prescriptions: Azithromycin [Zithromax 250 mg Tablet] 500 mg PO DAILY #6 tablet Home Medications: Albuterol Sulfate [Proair HFA Inhalation Aerosol 8.5 gm MDI] 2 puff IH Q4HP PRN 07/07/19 Aspirin [Ecotrin 81 mg EC Tablet] 81 mg PO DAILY 07/07/19 Atorvastatin Calcium [Lipitor 80 mg Tablet] 80 mg PO QHS 07/07/19 Dutasteride [Avodart Lf 0.5 mg Capsule] 0.5 mg PO DAILY 07/07/19 Fluticasone/Umeclidin/Vilanter [Trelegy 100-62.5-25 Mcg Ellipta 14 Dose/Dpi] 1 puff IH DAILY 07/07/19 Insulin Glargine,Hum.rec.anlog [Lantus Insulin 100 Unit/1 ml 10 ml] 15 unit SQ QHS 07/07/19 Insulin Regular, Human [Novolin R] 10 units SQ BID 07/07/19 Metoprolol Tartrate [Lopressor 25 mg Tablet] 12.5 mg PO Q12 07/07/19 Tamsulosin HCl [Flomax 0.4 mg Cap.sr] 0.4 mg PO DAILY 07/07/19 Azithromycin [Zithromax 250 mg Tablet] 500 mg PO DAILY #6 tablet 07/09/19 History of Present Illness History of Present Illness: COLLEEN BETTS JR is a 78 year old male with a several day history of increased shortness of breath. Patient had called his primary care practitioner in week and had antibiotics called in unfortunately they have not shown any improvement. Patient reported ER with increased shortness of breath and found to have an acute exacerbation of chronic CHF as well as as acute exacerbation of chronic COPD and a lobular right middle lobe pneumonia. Patient also has blunting of the bilateral lower lobes suggestive of pneumonia as well. Patient states no other treatment prior to arrival all active is been aggravating factor. Patient says he is unable to perform most of his usual activities at this time secondary shortness of breath. Does have a cough that is nonprodu ctive at this time Hospital Course Hospital Course: Patient was admitted for community-acquired pneumonia and acute congestive heart failure which turned out to be diastolic in nature. Patient states he was taking Lasix for lower extremity swelling until a week ago and then started having these issues. Patient is improved sufficiently return home at this time we will follow-up with Dr. Bourne his electrocardiograph technician this week. Patient has 20 mg tablets of Lasix at home I will have him continue these until he sees Dr. Bourne in follow-up. I will also continue patient on azithromycin 500 mill grams p.o. daily x3 days for his community acquired pneumonia. Patient and in agreement with plan of care. Physical Exam Vital Signs: Temp Pulse Resp BP Pulse Ox 97.4 F 62 20 116/48 L 95 07/09/19 08:09 07/09/19 08:09 07/09/19 08:09 07/09/19 08:09 07/09/19 08:09 Intake & Output 07/08/19 07/09/19 07/10/19 06:59 06:59 06:59 Intake Total 488 2220 Output Total 1200 3545 Balance -712 -1325 Weight 118.8 kg 117.2 kg General appearance: PRESENT: no acute distress, well-developed, well-nourished Head exam: PRESENT: atraumatic, normocephalic Eye exam: PRESENT: conjunctiva pink, EOMI, PERRLA. ABSENT: scleral icterus Ear exam: PRESENT: normal external ear exam Mouth exam: PRESENT: moist, tongue midline Neck exam: ABSENT: carotid bruit, JVD, lymphadenopathy, thyromegaly Respiratory exam: PRESENT: clear to auscultation sheila. ABSENT: rales, rhonchi, wheezes Cardiovascular exam: PRESENT: RRR. ABSENT: diastolic murmur, rubs, systolic murmur Pulses: PRESENT: normal dorsalis pedis pul Vascular exam: PRESENT: normal capillary refill GI/Abdominal exam: PRESENT: normal bowel sounds, soft. ABSENT: distended, guarding, mass, organolmegaly, rebound, tenderness Rectal exam: PRESENT: deferred Extremities exam: PRESENT: full ROM. ABSENT: calf tenderness, clubbing, pedal edema Neurological exam: PRESENT: alert, awake, oriented to person, oriented to place, oriented to time, oriented to situation, CN II-XII grossly intact. ABSENT: motor sensory deficit Psychiatric exam: PRESENT: appropriate affect, normal mood. ABSENT: homicidal ideation, suicidal ideation Skin exam: PRESENT: dry, intact, warm. ABSENT: cyanosis, rash Results Laboratory Results: 07/09/19 03:42 07/09/19 03:42 07/09/19 07/09/19 03:42 03:42 WBC 9.5 RBC 3.63 L Hgb 10.9 L Hct 33.0 L MCV 91 MCH 30.1 MCHC 33.1 RDW 14.3 H Plt Count 315 Sodium 136.3 L Potassium 4.7 Chloride 96 L Carbon Dioxide 29 Anion Gap 11 BUN 36 H Creatinine 1.35 H Est GFR ( Amer) > 60 Est GFR (Non-Af Amer) 51 L Glucose 281 H Calcium 9.0 07/07/19 12:31 Troponin I < 0.012 NT-Pro-B Natriuret Pep 2840 H Qualifiers - * PATIENT BEING DISCHARGED WITH ANY OF THE FOLLOWING DIAGNOSIS: No Acute Heart Failure - Is this a Heart Failure Patient?: No Plan Time Spent: Greater than 30 Minutes
--- NOTE | 2019-07-09 08:48 | ADVANCED CARE ---
- Diagnosis (1) Congestive heart failure Diagnosis Current: Yes (2) Acute exacerbation of chronic obstructive pulmonary disease (COPD) Diagnosis Current: Yes (3) Community acquired pneumonia Diagnosis Current: Yes (4) Diabetes mellitus type 2 in obese Diagnosis Current: Yes (5) Hypertension Diagnosis Current: Yes (6) Dyslipidemia Diagnosis Current: Yes (7) BPH (benign prostatic hyperplasia) Diagnosis Current: Yes Attendance: Myself patient and Resuscitation Status: Full Code Discussion: Discussed plan of care with patient and his . At this time patient be discharged home he will continue azithromycin 500 g p.o. daily x3 days. He will continue taking Lasix 20 g p.o. daily for which he is at home at this time. He will follow-up with Dr. Bourne on July 14. Patient and both in agreement with plan of care. Care Planning Goals: 1-azithromycin 500 mg p.o. daily x3 days 2-continue Lasix 20 g p.o. daily from home 3-follow-up Dr. Bourne on the of this month Time Spent: 15 minutes
--- NOTE | 2019-07-09 09:06 | RADIOLOGY REPORT (SQ) ---
EXAM DESCRIPTION: CHEST SINGLE VIEW COMPLETED DATE/TIME: 07/09/2019 8:44 am REASON FOR STUDY: pneumonia COMPARISON: 07/07/2019 EXAM PARAMETERS: NUMBER OF VIEWS: One view. TECHNIQUE: Single frontal radiographic view of the chest acquired. RADIATION DOSE: NA LIMITATIONS: None. FINDINGS: LUNGS AND PLEURA: Improved aeration of the right lung. Left lung remains clear. MEDIASTINUM AND HILAR STRUCTURES: No masses. Contour normal. HEART AND VASCULAR STRUCTURES: Heart normal in size. Normal vasculature. BONES: Sternal wires. HARDWARE: None in the chest. OTHER: No other significant finding. IMPRESSION: Improved aeration of the right lung. Left lung remains clear. TECHNICAL DOCUMENTATION: JOB ID: [id number] [employer]- All Rights Reserved Reading location - IP/workstation name: [email or web address]
[2019-07-09] MEDS: PREDNISONE 20 MG TABLET PO SCH (11:05)
[2019-07-09] MEDS: ASPIRIN 81 MG TABLET, ENT COATED PO SCH (11:05)
[2019-07-09] MEDS: TAMSULOSIN HCL 0.4 MG CAP.SR.24H PO SCH (11:05)
[2019-07-09] MEDS: AZITHROMYCIN 250 MG TABLET PO SCH (11:06)
[2019-07-09] MEDS: FUROSEMIDE INJ/PF 40 MG/4 ML SDV IV SCH (11:07)
[2019-07-09] MEDS: FLUTICASONE/UMECLIDIN/VILANTER 100-62.5-25 MCG/DOSE IH SCH (11:07)
[2019-07-09] MEDS: CEFTRIAXONE SODIUM 1,000 MG in DEXTROSE 5%-WATER 50 ML IV SCH (11:10)
[2019-07-09] MEDS: METOPROLOL TARTRATE 25 MG TABLET PO SCH (11:17)
[2019-07-09 12:27] VITALS: BP 151/66
== END 2019-07-09 13:39 | disposition home or self-care (01) | DRG 193 ==
LOC: ER 11:24 → EH 15:37 → 4N 17:25
PROVIDERS: ADMIT Internal Medicine; ATTEND Internal Medicine
PROC: 5A09457 Assistance with Respiratory Ventilation, 24-96 Consecutive Hours, Continuous Positive Airway Pressure (ICD-10-PCS; principal; 2019-07-07)
DX: J18.1 Lobar pneumonia, unspecified organism (principal); I50.33 Acute on chronic diastolic (congestive) heart failure; J44.0 Chronic obstructive pulmonary disease with (acute) lower respiratory infection; J44.1 Chronic obstructive pulmonary disease with (acute) exacerbation; I11.0 Hypertensive heart disease with heart failure; E11.9 Type 2 diabetes mellitus without complications; E66.9 Obesity, unspecified; E78.5 Hyperlipidemia, unspecified; N40.0 Benign prostatic hyperplasia without lower urinary tract symptoms; I25.10 Atherosclerotic heart disease of native coronary artery without angina pectoris; G47.33 Obstructive sleep apnea (adult) (pediatric); I25.2 Old myocardial infarction; Z79.899 Other long term (current) drug therapy; Z79.4 Long term (current) use of insulin; Z87.891 Personal history of nicotine dependence; Z79.82 Long term (current) use of aspirin; Z95.1 Presence of aortocoronary bypass graft; Z95.5 Presence of coronary angioplasty implant and graft; Z82.49 Family history of ischemic heart disease and other diseases of the circulatory system
CPT/HCPCS: 36415; 71045; 80048; 80053; 81001; 82803; 82962; 83880; 84484; 85025; 85027; 87040; 87070; 87205; 93005; 93010; 93306; 94640; 94660; 96365; 96375; 99285; J0696; J1644; J1815; J1940; J2920; J3490; J7060; J7512; J7620

== ENCOUNTER 2020-12-02 13:13 | Emergency (ER) | payer MEDICARE ==
[2020-12-02] MEDS ORDERED: IPRATROPIUM/ALBUTEROL 0.5-2.5 MG/3 ML AMPUL NEB ONE ×2 (14:55→18:49)
--- NOTE | 2020-12-02 14:58 | ER Document Report ---
ED General <FRANKLYN FIGUEROA - Last Filed: 12/02/20 21:38> - General TRAVEL OUTSIDE OF THE [place] IN LAST 30 DAYS: No <HARJINDER PETERS - Last Filed: 12/03/20 08:46> - General Chief Complaint: Fever Stated Complaint: FEVER Time Seen by Provider: 12/02/20 14:48 Primary Care Provider: SHIRLEY PFEIFFER MD [Primary Care Provider] - Follow up in 3-5 days Notes: Patient is an 79-year-old male who comes in the emergency department for chief complaint of wheezing, cough, shortness of breath, body aches, fever/chills. He is positive for COVID-19 from his primary care office, he states he was on a course of antibiotics but completed this, he states that his breathing got worse so he came in. He denies vomiting, chest pain. Patient has a history of COPD, former smoker, CABG, insulin-dependent type 2 diabetes. Patient denies cardiac history. Patient lives at home with his who is also positive. Patient states he has been symptomatic from COVID-19 for 2 weeks now. (HARJINDER PETERS) - Related Data Allergies/Adverse Reactions: No Known Allergies Allergy (Verified 12/02/20 15:22) Past Medical History - General Information source: Patient - Social History Smoking Status: Former Smoker Frequency of alcohol use: None Drug Abuse: None Family History: Reviewed & Not Pertinent - Past Medical History Cardiac Medical History: Reports: Hx Coronary Artery Disease, Hx Heart Attack - 2014, Hx Hypertension Pulmonary Medical History: Reports: Hx Asthma, Hx COPD, Hx Pneumonia Denies: Hx Bronchitis Neurological Medical History: Denies: Hx Cerebrovascular Accident, Hx Seizures Endocrine Medical History: Reports: Hx Diabetes Mellitus Type 2 Renal/ Medical History: Denies: Hx Peritoneal Dialysis Musculoskeletal Medical History: Reports Hx Arthritis Past Surgical History: Reports: Hx Cardiac Surgery - dbl bypass, Hx Orthopedic Surgery - left finger, left knee - Immunizations Hx Diphtheria, Pertussis, Tetanus Vaccination: Yes Hx Pneumococcal Vaccination: 08/29/13 <HARJINDER PETERS - Last Filed: 12/03/20 08:46> Review of Systems - Review of Systems Constitutional: See HPI EENT: No symptoms reported Cardiovascular: No symptoms reported Respiratory: See HPI Gastrointestinal: No symptoms reported Genitourinary: No symptoms reported Male Genitourinary: No symptoms reported Musculoskeletal: No symptoms reported Skin: No symptoms reported Hematologic/Lymphatic: No symptoms reported Neurological/Psychological: No symptoms reported <HARJINDER PETERS - Last Filed: 12/03/20 08:46> Physical Exam <HARJINDER PETERS - Last Filed: 12/03/20 08:46> - Vital signs Vitals: Temp Pulse Resp BP Pulse Ox 98.2 F 72 18 140/62 H 90 L 12/02/20 14:20 12/02/20 14:20 12/02/20 14:20 12/02/20 14:20 12/02/20 14:20 - Notes Notes: GENERAL: Alert, interacts well. No acute distress. HEAD: Normocephalic, atraumatic. EYES: Pupils equal, round, and reactive to light. Extraocular movements intact. ENT: Oral mucosa moist, tongue midline. Oropharynx unremarkable. Airway patent. Nares patent, sinuses non-tender, ear canals unremarkable, TM's intact. NECK: Full range of motion. Supple. Trachea midline. No lymphadenopathy. LUNGS: Decreased breath sounds bilaterally with expiratory wheezes and occasional coughing episodes. No labored breathing or overt respiratory distress. Nontender chest wall without signs of trauma. HEART: Regular rate and rhythm. No murmur ABDOMEN: Soft, non-tender. Non-distended. EXTREMITIES: Moves all 4 extremities spontaneously. No edema, normal radial and dorsalis pedis pulses bilaterally. No cyanosis. BACK: no cervical, thoracic, lumbar midline tenderness. No saddle anesthesia, normal distal neurovascular exam. Moves all extremities in full range of motion. NEUROLOGICAL: Alert and oriented x3. Normal speech. Cranial nerves II through XII grossly intact. Strength 5/5 in all extremities. PSYCH: Normal affect, normal mood. SKIN: Warm, dry, normal turgor. No rashes or lesions noted. (HARJINDER PETERS) Course - Laboratory Results Result Diagrams: 12/02/20 15:00 12/02/20 15:00 <FRANKLYN FIGUEROA - Last Filed: 12/02/20 21:38> - Laboratory Results Result Diagrams: 12/02/20 15:00 12/02/20 15:00 Critical Laboratory Results Reviewed: No Critical Results - Radiology Results Critical Radiology Results Reviewed: No Critical Results <HARJINDER PETERS - Last Filed: 12/03/20 08:46> - Re-evaluation Re-evalutation: 12/02/20 21:33 CTA was negative for pulmonary emboli. Patient states that he is not having any pain or discomfort at this time. He states his breathing is actually better than it was. His O2 sat is 93 to 94% on room air. He states he does have a BiPAP at home. Patient has no audible wheezes at this time lungs are actually surprisingly clear for his diagnosis of Covid pneumonia and COPD. Have discussed discharge with patient and he has received the prescriptions that were approved written earlier and he will be discharged home. (FRANKLYN FIGUEROA) Patient tachypneic, 90% on room air, expiratory wheezes noted throughout. Patient noted to be on doxycycline and low-dose dexamethasone by primary care per records. Patient is not tachycardic, febrile, or hypotensive here. Placed on monitor, starting breathing treatments, work-up pending. CBC, chemistry unremarkable. Troponin is not elevated. Chest x-ray shows bilateral infiltrates consistent with COVID-19 pneumonia. EKG nonischemic. On evaluation wheezing has significantly improved and basically resolved after D uoNeb's. He is 92% on room air at this time when taken off the oxygen, however we attempted to ambulate the patient, he had extremely labored breathing, a lot of difficulty with ambulation, and desaturated to 86% on room air quickly. Patient was placed back in the room and back on oxygen. Will discuss with the hospitalist. 12/02/20 18:[address] Mcwilliams, hospitalist. He evaluated the patient at bedside. He did ambulate the patient in the room and he maintained at 92 to 93%. He does have some wheezing. He recommends an additional DuoNeb, CTA to make sure patient does not have a pulmonary embolism, and a discharge home with refills for his albuterol inhaler and nebulizer and a gradual prednisone taper. He states that he called and spoke to the . This will be performed. (HARJINDER PETERS) - Vital Signs Vital signs: Temp Pulse Resp BP Pulse Ox 98.0 F 84 20 151/72 H 93 12/02/20 21:29 12/02/20 21:29 12/02/20 21:29 12/02/20 21:29 12/02/20 21:29 - Laboratory Results Laboratory Results Interpreted: 12/02/20 12/02/20 15:00 15:00 VBG pH 7.46 H Sodium 134.9 L BUN 24 H Glucose 197 H Total Protein 6.1 L Albumin 3.0 L Discharge <FRANKLYN FIGUEROA - Last Filed: 12/02/20 21:38> <HARJINDER PETERS - Last Filed: 12/03/20 08:46> - Discharge Clinical Impression: Pneumonia due to COVID-19 virus, Acute exacerbation of chronic obstructive pulmonary disease (COPD), Wheezing Condition: Stable Disposition: HOME, SELF-CARE Additional Instructions: You have been evaluated for COVID-19 pneumonia and a COPD exacerbation. We are prescribing you a prednisone taper for your COPD and for your breathing during COVID-19 infection. Take this as prescribed, use the albuterol inhaler or nebulizer 4 times daily for the next 5 days. Follow-up with your primary care provider closely for recheck and additional management. Come back if you are worse including difficulty breathing, chest pain, spiking fevers, vomiting, or something is not right. Prescriptions: Albuterol Sulfate [Proventil 0.5% Neb 2.5 mg/0.5 ml Vial.neb] 2.5 mg NEB Q6HP PRN #30 vial.neb PRN Reason: Prednisone [Deltasone 10 mg Tablet] 10 mg PO ASDIR PRN #50 tablet PRN Reason: Albuterol Sulfate [Proair HFA Inhalation Aerosol 8.5 gm MDI] 2 puff IH Q4H PRN #1 mdi PRN Reason: Referrals: SHIRLEY PFEIFFER MD [Primary Care Provider] - Follow up in 3-5 days
[2020-12-02 15:28] LABS: ABSOLUTE EOSINOPHILS # (AUTO) 0.2 10^3/uL (0.0-0.6); ABSOLUTE MONOCYTES (AUTO) 0.7 10^3/uL (0.1-1.4); ABSOLUTE NEUT (AUTO) 5.2 10^3/uL (1.7-8.2); BASOPHILS % (AUTO) 0.5 % (0-2); HEMATOCRIT 38.9 % (37.9-51.0); HEMOGLOBIN 13.5 g/dL (13.5-17.0); LYMPHOCYTES % (AUTO) 13.8 % (13-45); MEAN CORPUSCULAR HEMOGLOBIN 31.1 pg (27.0-33.4); MEAN CORPUSCULAR HGB CONC 34.8 g/dL (32.0-36.0); MEAN CORPUSCULAR VOLUME 89 fl (80-97); MONOCYTES % (AUTO) 9.6 % (3-13); PLATELET COUNT 215 10^3/uL (150-450); RED BLOOD COUNT 4.35 10^6/uL (4.35-5.55); RED CELL DISTRIBUTION WIDTH 13.9 % (11.5-14.0); SEGMENTED NEUTROPHILS % (AUTO) 73.1 % (42-78); TOTAL CELLS COUNTED % (AUTO) 100 %; WHITE BLOOD COUNT 7.2 10^3/uL (4.0-10.5)
[2020-12-02 15:29] LABS: VENOUS BLOOD BASE EXCESS 3.8 mmol/L; VENOUS BLOOD HCO3 27.9 mmol/L (20-32); VENOUS BLOOD PCO2 40.3 mmHg (35-63); VENOUS BLOOD PH 7.46 (7.30-7.42)
[2020-12-02 15:48] LABS: ALKALINE PHOSPHATASE 80 U/L (38-126); ANION GAP 6 (5-19); ASPARTATE AMINO TRANSFERASE 31 U/L (17-59); BILIRUBIN,DIRECT 0.2 mg/dL (0.0-0.4); BILIRUBIN,TOTAL 0.8 mg/dL (0.2-1.3); BLOOD UREA NITROGEN 24 mg/dL (7-20); CALCIUM 8.6 mg/dL (8.4-10.2); CARBON DIOXIDE 30 mmol/L (22-30); CHLORIDE 99 mmol/L (98-107); GLUCOSE 197 mg/dL (75-110); POTASSIUM 3.9 mmol/L (3.6-5.0); TOTAL PROTEIN 6.1 g/dL (6.3-8.2)
--- NOTE | 2020-12-02 15:48 | RADIOLOGY REPORT (SQ) ---
EXAM DESCRIPTION: CHEST SINGLE VIEW IMAGES COMPLETED DATE/TIME: 12/02/2020 3:30 pm REASON FOR STUDY: hypoxia, recent COVID COMPARISON: 07/09/2019 EXAM PARAMETERS: NUMBER OF VIEWS: One view. TECHNIQUE: Single frontal radiographic view of the chest acquired. RADIATION DOSE: NA LIMITATIONS: None. FINDINGS: LUNGS AND PLEURA: Patchy peripheral bilateral airspace disease left greater than right. F indings are consistent with viral pneumonitis. No pneumothorax. MEDIASTINUM AND HILAR STRUCTURES: No masses. Contour normal. HEART AND VASCULAR STRUCTURES: Stable in appearance. BONES: No acute findings. HARDWARE: Sternotomy wires are in place. OTHER: No other significant finding. IMPRESSION: Patchy bilateral airspace disease consistent with viral pneumonitis. COMMENT: Commonly reported imaging features of COVID-19 pneumonia are present. Other processes suc h as influenza pneumonia and organizing pneumonia, as can be seen with drug toxicity and connective t issue disease, can cause a similar imaging pattern. [facility] TECHNICAL DOCUMENTATION: JOB ID: [id number] [employer]- All Rights Reserved Reading location - IP/workstation name: [email or web address]
[2020-12-02] MEDS ORDERED: DEXAMETHASONE SOD PHOS INJ 10 MG/1 ML VIAL IV ONE (17:14)
--- NOTE | 2020-12-02 19:01 | PDOC CONSULTATION ---
Consultation Consult Date: 12/02/20 Attending physician:: HARJINDER PETERS Provider Consulted: BRENDA VARGAS Consult reason:: Shortness of breath History of Present Illness Admission Date/PCP: SHIRLEY PFEIFFER MD Patient complains of: sob History of Present Illness: COLLEEN BETTS JR is a 79 year old male with history of COPD not on home o xygen, CAD status post CABG in the distant past, who presents to the hospital for evaluation of shortness of breath. Patient was diagnosed with Covid while back. He developed symptoms about 14 days ago. He was taking care of by his primary care provider who prescribed dexamethasone which she has been taking as outpatient. He also took doxycycline as outpatient. He symptoms progressed and felt short of breath today so decided to come to the hospital. On presentation the hospital chest x-ray shows pneumonia. He was noted to be having significant wheezing on initial presentation and was saturating at 90% on room air. He was given breathing treatments after which his saturation improved to 92% on room air. He attempted to walk him in his room and his saturations dropped to 86% but only very briefly. Hospitalist service subsequently consulted patient. On evaluation of patient, he states that he feels much since his treatments. I had him ambulate on room air during which pulse ox remained at 93%. He has albuterol inhalers at home. Past Medical History Cardiac Medical History: Reports: Coronary Artery Disease, Myocardial Infarction - 2014, Hypertension Pulmonary Medical History: Reports: Asthma, Chronic Obstructive Pulmonary Disease (COPD), Pneumonia Denies: Bronchitis Neurological Medical History: Denies: Seizures Endocrine Medical History: Reports: Diabetes Mellitus Type 2 Musculoskeltal Medical History: Reports: Arthritis Hematology: Denies: Anemia Past Surgical History Past Surgical History: Reports: Orthopedic Surgery - left finger, left knee Social History Smoking Status: Current Some Day Smoker Frequency of Alcohol Use: None Hx Recreational Drug Use: No Drugs: None Hx Prescription Drug Abuse: No Family History Family History: Hypertension Parental Family History Reviewed: Yes Children Family History Reviewed: Yes Sibling(s) Family History Reviewed.: Yes Medication/Allergy Home Medications: Albuterol Sulfate [Proair HFA Inhalation Aerosol 8.5 gm MDI] 2 puff IH Q4HP PRN 07/07/19 Aspirin [Ecotrin 81 mg EC Tablet] 81 mg PO DAILY 07/07/19 Atorvastatin Calcium [Lipitor 80 mg Tablet] 80 mg PO QHS 07/07/19 Dutasteride [Avodart Lf 0.5 mg Capsule] 0.5 mg PO DAILY 07/07/19 Fluticasone/Umeclidin/Vilanter [Trelegy 100-62.5-25 Mcg Ellipta 14 Dose/Dpi] 1 puff IH DAILY 07/07/19 Insulin Glargine,Hum.rec.anlog [Lantus Insulin 100 Unit/1 ml 10 ml] 15 unit SQ QHS 07/07/19 Insulin Regular, Human [Novolin R] 10 units SQ BID 07/07/19 Metoprolol Tartrate [Lopressor 25 mg Tablet] 12.5 mg PO Q12 07/07/19 Tamsulosin HCl [Flomax 0.4 mg Cap.sr] 0.4 mg PO DAILY 07/07/19 Azithromycin [Zithromax 250 mg Tablet] 500 mg PO DAILY #6 tablet 07/09/19 Allergies/Adverse Reactions: No Known Allergies Allergy (Verified 12/02/20 15:22) Review of Systems Constitutional: PRESENT: fever(s). ABSENT: chills, fatigue Eyes: ABSENT: visual disturbances Ears: PRESENT: other - Chronic hearing loss Nose, Mouth, and Throat: ABSENT: headache(s) Cardiovascular: ABSENT: chest pain Respiratory: PRESENT: cough, dyspnea Gastrointestinal: ABSENT: abdominal pain, nausea, vomiting Genitourinary: ABSENT: dysuria Integumentary: ABSENT: diaphoresis Neurological: ABSENT: dizziness, syncope Psychiatric: ABSENT: anxiety Endocrine: ABSENT: polyuria Hematologic/Lymphatic: ABSENT: easy bruising Physical Exam Vital Signs: Temp Pulse Resp BP Pulse Ox 98.2 F 72 18 140/62 H 95 12/02/20 14:20 12/02/20 14:20 12/02/20 14:20 12/02/20 14:20 12/02/20 14:35 Intake & Output 12/01/20 12/02/20 12/03/20 06:59 06:59 06:59 Weight 123.9 kg General appearance: PRESENT: no acute distress, cooperative Head exam: ABSENT: normocephalic Eye exam: PRESENT: EOMI Neck exam: ABSENT: JVD Respiratory exam: PRESENT: crackles - Mild, symmetrical, unlabored, wheezes - Mild expiratory. ABSENT: accessory muscle use, retraction, tachypnea Cardiovascular exam: PRESENT: RRR, +S1, +S2. ABSENT: tachycardia GI/Abdominal exam: PRESENT: soft. ABSENT: rebound, rigid, tenderness Musculoskeletal exam: PRESENT: ambulatory Neurological exam: PRESENT: alert, awake, oriented to person, oriented to place, oriented to time Psychiatric exam: ABSENT: agitated, anxious Focused psych exam: ABSENT: pressured speech Results Laboratory Results: 12/02/20 15:00 12/02/20 15:00 12/02/20 12/02/20 12/02/20 15:00 15:00 15:00 WBC 7.2 RBC 4.35 Hgb 13.5 Hct 38.9 MCV 89 MCH 31.1 MCHC 34.8 RDW 13.9 Plt Count 215 Seg Neutrophils % 73.1 VBG pH 7.46 H VBG pCO2 40.3 VBG HCO3 27.9 VBG Base Excess 3.8 Sodium 134.9 L Potassium 3.9 Chloride 99 Carbon Dioxide 30 Anion Gap 6 BUN 24 H Creatinine 1.04 Est GFR ( Amer) > 60 Glucose 197 H Calcium 8.6 Total Bilirubin 0.8 AST 31 Alkaline Phosphatase 80 Total Protein 6.1 L Albumin 3.0 L 12/02/20 15:00 Troponin I 0.026 Impressions: Chest X-Ray 12/02/20 14:56 IMPRESSION: Patchy bilateral airspace disease consistent with viral pneumonitis. Assessment and Plan - Diagnosis (1) Pneumonia due to COVID-19 virus Is this a current diagnosis for this admission?: Yes (2) Acute exacerbation of chronic obstructive pulmonary disease (COPD) Is this a current diagnosis for this admission?: Yes (3) Hypoxia Is this a current diagnosis for this admission?: Yes - Plan Summary Summary: Patient likely has COPD exacerbation contributing to his acute presentation with initial hypoxia. Given his COPD, SPO2 of 90% is adequate for him. Regarding his desaturation to 86%, it seems to have resolved at this point as he is already 93% during ambulation on room air while I was in the room. I would recommend continuing inhaler treatments 4 times a day for the next several days while at home. I will also give him a dose of ivermectin. I recommend that you rates any exertional activity and limit his activity for the time being I recommend discharging patient on tapered dose of prednisone over the next several days. I have spoken with patient and his who are in agreement. They have notified me that patient has inhalers at home and that their son will bring it by pulse oximeter tomorrow. I have given them parameters to use to monitor his oxygen and informed her thatshould his condition continue to decline or his oxygen saturation drop below 88%, they should come right back to the hospital. May also be worth checking a CTA of the chest to rule out PE as Covid is frequently associated with this. - Time Time Spent with patient: 35 or more minutes Anticipated Discharge Disposition: Home, Self Care Anticipated Discharge Timeframe: within 24 hours
[2020-12-02] MEDS ORDERED: IVERMECTIN 3 MG TABLET PO ONE (20:00)
--- NOTE | 2020-12-02 21:16 | RADIOLOGY REPORT (SQ) ---
EXAM DESCRIPTION: CTA CHEST RadLex: CT CHEST ANGIOGRAPHY WITHOUT THEN WITH IV CONTRAST CLINICAL HISTORY: 79 years Male; shortness of breath, +COVID; ?PE; TECHNIQUE: CT angiogram of the chest using intravenous contrast. MIP reconstructions were performed. All CT scans at this facility use dose modulation, iterative reconstruction, and/or weight based dosing when appropriate to reduce radiation dose to as low as reasonably achievable. COMPARISON: None. FINDINGS: Pulmonary arteries: No filling defects in the central pulmonary arteries. Lungs: There are extensive scattered bilateral groundglass opacities, many extending up to the periphery. Several focal areas of consolidation in the lower lobes. No pneumothorax or pleural effusion. Mediastinum: Previous sternotomy. Moderate coronary artery calcifications. No enlarged mediastinal lymph nodes. No thoracic aortic aneurysm or dissection. Bones:No acute bone findings. IMPRESSION: 1. No CT evidence for pulmonary embolism. 2. Patchy bilateral infiltrates, typical for Covid 19 pneumonia. 3. Previous sternotomy
[2020-12-02 21:31] VITALS: BP 151/72
--- NOTE | 2020-12-03 10:29 | EKG REPORT ---
SEVERITY:- ABNORMAL ECG - SINUS RHYTHM CONSIDER ANTEROSEPTAL INFARCT ABNORMAL T, CONSIDER ISCHEMIA, LATERAL LEADS : Confirmed by: Sony Pierre 03-Dec-2020 10:28:26
== END 2020-12-02 21:40 | disposition home or self-care (01) ==
LOC: ER 13:13
DX: U07.1 COVID-19 (principal); J12.89 Other viral pneumonia; J44.1 Chronic obstructive pulmonary disease with (acute) exacerbation; R06.2 Wheezing; R50.9 Fever, unspecified; R05 Cough; R06.02 Shortness of breath; M79.10 Myalgia, unspecified site; Z87.891 Personal history of nicotine dependence; E11.9 Type 2 diabetes mellitus without complications; Z79.4 Long term (current) use of insulin
CPT/HCPCS: 93005; 94640 ×2; 99285; 96374; 36415; 87040; 85025; 80053; 84484; 82803; 71045; 71275; 93010; J1100; A9270